=== PATIENT | female | born 1965 | race Caucasian/White ===

== ENCOUNTER 2019-06-06 16:14 | Emergency (ER) | payer OTHER ==
[~2019-06-06] VITALS: Ht 157.5 cm; Wt 90.0 kg
[2019-06-06] MEDS ORDERED: PALIPERIDONE PALMITATE 234 MG/1.5 ML IM ONE (17:00)
--- NOTE | 2019-06-06 18:14 | NUR ---
PT. WAS GIVEN DISCHARGE INSTRUCTIONS AND SCRIPTS WITH UNDERSTANDING VERBALIZED ALONG WITH WILLINGNESS TO COMPLY. PT. WAS AMBULATORY WITH A STEADY GAIT TO THE DISCHARGE DESK. VSS.
[2019-06-06 18:15] VITALS: BP 116/90
== END 2019-06-06 18:18 ==
LOC: ED 17:55
DX: B34.9 Viral infection, unspecified (principal); Z76.0 Encounter for issue of repeat prescription
CPT/HCPCS: 96372; 99283; J2426

== ENCOUNTER 2019-06-09 09:30 | Emergency (ER) | payer OTHER ==
[~2019-06-09] VITALS: Ht 157.5 cm; Wt 88.6 kg
[2019-06-09 09:37] VITALS: BP 114/47
--- NOTE | 2019-06-09 10:00 | NUR ---
OBSERVED PT WALKING IN AND OUT OF RME 06, TALKING ON HER CELL PHONE.
--- NOTE | 2019-06-09 10:08 | NUR ---
PT STATES SHE'S "HERE FOR A BACK-UP SHOT". "AT HOME I'M ON THE THREE MONTH SHOT" (OF [employer]). PT STATES THAT'S WHAT PAPERWORK SAID. HOME [place]. PT STATES LAST [employer] SHOT WAS THREE DAYS AGO. Addendum: 06/09/19 at 1019 by CHRIS PT SPEAKING IN ANGRY VOICE
[2019-06-09] MEDS ORDERED: INVEGA (10:17)
[2019-06-09] MEDS ORDERED: DEPAKOTE (10:17)
--- NOTE | 2019-06-09 10:22 | NUR ---
PT REQUESTED MENSTRUAL PAD; WILL BE PROVIDED.
== END 2019-06-09 10:31 | disposition home or self-care (01) ==
LOC: ED 10:09
DX: R05 Cough (principal); R21 Rash and other nonspecific skin eruption
CPT/HCPCS: 99281

== ENCOUNTER 2019-06-11 00:58 | Emergency (ER) | payer OTHER ==
[~2019-06-11] VITALS: Ht 165.1 cm; Wt 109.0 kg
[~2019-06-11 00:58] MED LIST: DEPAKOTE; INVEGA
[2019-06-11 01:01] VITALS: BP 140/86
--- NOTE | 2019-06-11 02:25 | NUR ---
PT D/C WITH D/C SUMMARY AND F/U WITH [facility]. PT VERBALIZES UNDERSTANDING OF NEED FOR F/U. PT AMBULATED TO REGISTRATION DESK WITH STEADY GAIT FOR D/C HOME TO FATHER. PT REQUESTING TO USE PHONE FOR CALL TO FATHER, AND PT PROVIDED PHONE PER REQUEST. PT DENIES ANY OTHER NEEDS PERTAINING TO THIS VISIT, AND ALL QUESTIONS ANSWERED.
== END 2019-06-11 02:27 | disposition home or self-care (01) ==
LOC: ED 01:30
DX: F31.9 Bipolar disorder, unspecified (principal); F10.10 Alcohol abuse, uncomplicated; F15.10 Other stimulant abuse, uncomplicated; F17.200 Nicotine dependence, unspecified, uncomplicated; Y90.9 Presence of alcohol in blood, level not specified
CPT/HCPCS: 99283; 99284